=== PATIENT | male | born 1995 | race Hispanic/Latino ===

== ENCOUNTER 2022-07-20 12:19 | Emergency (ER) | payer SELFPAY ==
[~2022-07-20] VITALS: Ht 165.1 cm; Wt 82.0 kg
[2022-07-20] VITALS (10 sets, daily range): BP systolic 116–140; BP diastolic 77–89
[2022-07-20 13:12] LABS: HEMATOCRIT 44.9 % (39.0-50.0); HEMOGLOBIN 16.1 g/dl (14.0-18.0); IMMATURE GRANULOCYTES 0.2 % (0.0-5.0); MEAN CELL VOLUME 91.1 fL CALC (80.0-100.0); MEAN CORPUSCULAR HGB 32.7 pG CALC (26.0-32.0); MEAN CORPUSCULAR HGB CONC 35.9 g/dL CAL (32.0-36.0); NEUT# 3.13 thou/uL (1.82-7.42); RED BLOOD COUNT 4.93 mill/uL (4.70-6.10); RED CELL DISTRI WIDTH 12.3 % (11.5-15.5)
[2022-07-20] MEDS ORDERED: DICYCLOMINE10 MG PO (13:18)
[2022-07-20] MEDS ORDERED: MECLIZINE 2525 MG (13:19)
[2022-07-20] MEDS ORDERED: PROTONIX40 M2 PO ×3 (13:19→17:32)
[2022-07-20 13:46] LABS: ALKALINE PHOSPHATASE 80 u/l (38-126); ANION GAP 14 (6-22 (CALC)); BILIRUBIN, TOTAL 0.4 mg/dL (0.0-1.4); BUN 16 mg/dL (9-20); BUN/CREATININE RATIO 16 (12-20 (CALC)); CARBON DIOXIDE 26 mmol/l (22-30); CHLORIDE 104 mmol/l (95-108); GFR FOR AFR.AMER. > 60 ML/MIN (>=60 (CALC)); GFR OTHER RACES > 60 ML/MIN (>=60 (CALC)); LIPASE 62 u/l (23-300); POTASSIUM 3.9 mmol/l (3.5-5.1); SGOT/AST 43 u/l (17-59); SODIUM 141 mmol/l (137-146)
[2022-07-20 15:00] LABS: URINE BILIRUBIN - DIPSTICK NEGATIVE (NEGATIVE); URINE BLOOD DIPSTICK NEGATIVE (NEGATIVE); URINE COLOR YELLOW; URINE GLUCOSE - DIPSTICK NEGATIVE (NEGATIVE); URINE KETONE NEGATIVE (NEGATIVE); URINE LEUK ESTERASE NEGATIVE (NEGATIVE); URINE PROTEIN - DIPSTICK NEGATIVE (NEG-TRACE); URINE SPECIFIC GRAVITY <=1.005; URINE UROBILINOGEN - DIPSTICK 0.2 E.U./dL (0.2)
[2022-07-20 15:01] LABS: URINE NITRITE - DIPSTICK NEGATIVE (Negative)
== END 2022-07-20 17:43 | disposition home or self-care (01) | DRG 392 ==
LOC: ED 12:19
PROVIDERS: Family Medicine
DX: K29.70 Gastritis, unspecified, without bleeding (principal); R10.9 Unspecified abdominal pain; Z20.822 Contact with and (suspected) exposure to COVID-19; R19.7 Diarrhea, unspecified; K76.0 Fatty (change of) liver, not elsewhere classified
CPT/HCPCS: Q9967

== ENCOUNTER 2023-08-03 09:29 | Emergency (ER) | payer SELFPAY ==
[~2023-08-03] VITALS: Ht 165.1 cm; Wt 81.0 kg
[~2023-08-03 09:29] MED LIST: DICYCLOMINE10 MG PO; MECLIZINE 2525 MG; PROTONIX40 M2 PO
[2023-08-03] MEDS ORDERED: NAPROXEN500 MG PO (11:28)
[2023-08-03] MEDS ORDERED: AMOX/K CLAV875 M1 PO (11:28)
[2023-08-03 11:40] VITALS: BP 134/80
== END 2023-08-03 11:48 | disposition home or self-care (01) | DRG 153 ==
LOC: ED 09:29
DX: H66.92 Otitis media, unspecified, left ear (principal)